=== PATIENT | female | born 1965 | race American Indian/Alaskan Native ===

== ENCOUNTER 2018-05-07 07:44 | Outpatient (CLI) | payer BC ==
--- NOTE | 2018-05-07 16:37 | Mammography Report ---
BILATERAL DIGITAL SCREENING MAMMOGRAM with CAD: 05/07/18 07:44:00 CLINICAL: Routine screening. COMPARISON:03/29/15 FINDINGS: The breasts are almost entirely fatty. No mass, architectural distortion or suspicious calcifications. IMPRESSION: No mammographic evidence of malignancy. BI-RADS CATEGORY: 1 - - Negative RECOMMENDATION: Routine mammographic screening in one year. COMMENT: Patient follow-up letters are generated by our [employer] application.
== END 2018-05-07 07:45 | disposition home or self-care (01) ==
LOC: MAMMO 07:44
PROVIDERS: ATTEND Family Medicine
DX: Z12.31 Encounter for screening mammogram for malignant neoplasm of breast (principal); Z88.8 Allergy status to other drugs, medicaments and biological substances; Z91.011 Allergy to milk products
CPT/HCPCS: 77067

== ENCOUNTER 2019-11-18 13:17 | Outpatient (CLI) | payer BC ==
--- NOTE | 2019-11-18 14:39 | Mammography Report ---
DIGITAL SCREENING MAMMOGRAM WITH CAD, 11/18/2019 INDICATION: Routine screening mammography. TECHNIQUE: Digital bilateral 2D mammography was obtained in the craniocaudal and mediolateral obliq ue projections. This examination was interpreted with the benefit of Computer-Aided Detection analysi s. COMPARISON: 02/04/2019 FINDINGS: Breast Density: There are scattered areas of fibroglandular density. There is no evidence of dominant mass, suspicious calcifications or architectural distortion in eithe r breast. IMPRESSION: No mammographic evidence of malignancy. Follow up recommendation: Routine yearly BI-RADS Category 1: Negative. A "normal" or negative report should not discourage follow up or biopsy of a clinically significant f inding. A written summary of these findings will be mailed to the patient. The patient will be entered into a mammography reporting system which will generate a reminder letter for the patient's next appointmen t at the appropriate interval. The [employer] recommends yearly mammograms starting at age 40 and continuing as l [place] as a woman is in good health. Breast MRI is recommended for women with an approximate 20-25% or greater lifetime risk of breast cancer, including women with a strong family history of breast or ova [place] cancer or who have been treated for Hodgkin's disease. Signer Name: Cale Barnett MD Signed: 11/18/2019 2:35 PM Workstation Name: [id number]
== END 2019-11-18 13:18 | disposition home or self-care (01) ==
LOC: MAMMO 13:17
PROVIDERS: ATTEND Family Medicine
DX: Z12.31 Encounter for screening mammogram for malignant neoplasm of breast (principal); N64.89 Other specified disorders of breast
CPT/HCPCS: 77067

== ENCOUNTER 2021-03-09 07:02 | Emergency (ER) | payer BC ==
--- NOTE | 2021-03-09 07:18 | Emergency Department Report ---
ED Headache HPI - General Chief Complaint: Headache Stated Complaint: SEVERE HEADACHE Time Seen by Provider: 03/09/21 07:17 Source: patient Exam Limitations: no limitations - History of Present Illness Initial Comments: 55-year-old female with no past medical history presents to the ER today with complaints of headache. Patient states that she has been having headache for 3 days. She describes a right-sided headache that radiates into her frontal head, and radiates into the occipital scalp. She states that the headache is intermittent and she describes it as a achy, sometimes squeezing pain. Patient states that she has been taking Tylenol which did relieve the pain until this morning when she took 2 Tylenol but it did not help. She states that she does not typically suffer from headaches. She denies any associated nausea, vomiting, vision changes, speech changes, neck pain, fever, chills, chest pain, shortness of breath or any other associated symptoms. She denies any head injuries recently. She is not on any anticoagulants or antiplatelets. Timing/Duration: other (3 days ago) Quality: achy, other (Squeezing) Allergies/Adverse Reactions: Allergies chloroquine Allergy (Verified 04/18/15 12:34) Dizziness BUTTER Allergy (Uncoded 05/07/18 07:45) Hives Home Medications: Ambulatory Orders Aspirin BABY CHEW TAB 81 mg PO DAILY 04/27/15 Multiple Vitamins For Women 1 tab PO DAILY 04/27/15 Ketorolac [Toradol] 10 mg PO Q6H PRN #20 tablet 03/09/21 ED Review of Systems ROS: Stated complaint: SEVERE HEADACHE Other details as noted in HPI Comment: All other systems reviewed and negative Constitutional: denies: chills, fever Eyes: denies: eye pain, eye discharge, vision change ENT: denies: ear pain, throat pain Respiratory: denies: cough, shortness of breath, SOB with exertion, SOB at rest, wheezing Cardiovascular: denies: chest pain, palpitations Gastrointestinal: denies: abdominal pain, nausea, vomiting, diarrhea, constipation, hematemesis, melena, hematochezia Genitourinary: denies: urgency, dysuria, frequency, hematuria, discharge, abnormal menses, dyspareunia Musculoskeletal: denies: back pain, joint swelling, arthralgia Skin: denies: rash, lesions, change in color, change in hair/nails, pruritus Neurological: headache. denies: numbness, paresthesias, confusion, abnormal gait, vertigo Psychiatric: denies: anxiety, depression, auditory hallucinations, visual hallucinations, homicidal thoughts, suicidal thoughts Hematological/Lymphatic: denies: easy bleeding, easy bruising ED Past Medical Hx - Past Medical History Hx COPD: No Hx HIV: No - Social History Smoking Status: Never Smoker - Medications Home Medications: Home Medications Medication Instructions Recorded Confirmed Last Taken Type Aspirin BABY CHEW TAB 81 mg PO DAILY 04/27/15 04/27/15 04/20/15 History Multiple Vitamins For Women 1 tab PO DAILY 04/27/15 04/27/15 04/26/15 History Ketorolac [Toradol] 10 mg PO Q6H PRN #20 tablet 03/09/21 Unknown Rx ED Physical Exam - General Limitations: No Limitations General appearance: alert, in no apparent distress - Head Head exam: Present: atraumatic, normocephalic, normal inspection - Eye Eye exam: Present: normal appearance, PERRL, EOMI Pupils: Present: normal accommodation - ENT ENT exam: Present: normal exam, mucous membranes moist, TM's normal bilaterally - Neck Neck exam: Present: normal inspection, full ROM - Respiratory Respiratory exam: Present: normal lung sounds bilaterally. Absent: respiratory distress, wheezes, rales, rhonchi - Cardiovascular Cardiovascular Exam: Present: regular rate, normal rhythm, normal heart sounds - GI/Abdominal GI/Abdominal exam: Present: soft. Absent: distended, tenderness, guarding, rebound - Neurological Exam Neurological exam: Present: alert, oriented X3, CN II-XII intact, normal gait, reflexes normal. Absent: motor sensory deficit - Psychiatric Psychiatric exam: Present: normal affect, normal mood - Skin Skin exam: Present: intact ED Course Vital Signs 03/09/21 03/09/21 03/09/21 07:10 09:10 09:42 Temperature 98.2 F 98.0 F Pulse Rate 77 64 Respiratory 18 18 16 Rate Blood Pressure 151/76 Blood Pressure 131/67 [Left] O2 Sat by Pulse 100 99 Oximetry ED Medical Decision Making - Radiology Data Radiology results: report reviewed Patient: DIO PATRICK MR#: [id number] : 1965 Acct:[id number] Age/Sex: 55 / F ADM Date: 03/09/21 Loc: ED Attending Dr: Ordering Physician: BRIGIDO BUCHANAN Date of Service: 03/09/21 Procedure(s): CT head/brain wo con Accession Number(s): [id number] cc: BRIGIDO BUCHANAN CT HEAD WITHOUT CONTRAST INDICATION : headache. TECHNIQUE: Axial imaging performed from the skull apex through the skull base without the use of contrast. Sagittal and coronal reformatted images. All CT scans at this location are performed using CT dose reduction for ALARA by means of automated exposure control. COMPARISON: None FINDINGS: Parenchyma: No acute intracranial hemorrhage or parenchymal abnormality. Ventricles: Ventricles are normal in size and appear symmetric. Bones: No acute osseous abnormality. Sinuses: Sinuses and mastoid air cells are clear. Soft tissues: Soft tissues including the orbits appear normal. IMPRESSION: No acute abnormality. Signer Name: Stewart Crespo Jr, MD Signed: 03/09/2021 8:21 AM Workstation Name: [id number] Transcribed By: TTR Dictated By: STEWART CRESPO JR, MD Electronically Authenticated By: STEWART CRESPO JR, MD Signed Date/Time: 03/09/21820 DD/ 8 TD/TT: - Medical Decision Making The patient presented to the emergency department with a headache. The patient is currently resting comfortably and, is alert, talkative, interactive and in no distress. The patient appears well and appears well-hydrated. Head CT shows nothing acute. She has a normal neurological exam, she has has a normal mental status, and is ambulatory in the ER. Her history, exam, diagnostic testing and the patient's current condition does not suggest meningitis, stroke, sepsis, subarachnoid hemorrhage, intracranial bleeding, encephalitis, temporal arteritis or other significant pathology to warrant further testing, continued ED treatment, admission, neurological consultation or other specialist evaluation at this p oint. Her vital signs have been stable. Discussed CT results, suspected dx and tx plan with pt. The patient's condition is stable and appropriate for discharge. The patient will pursue further outpatient evaluation with the primary care physician. Critical care attestation.: If time is entered above; I have spent that time in minutes in the direct care of this critically ill patient, excluding procedure time. ED Disposition Clinical Impression: Headache Disposition: DC-01 TO HOME OR SELFCARE Is pt being admited?: No Does the pt Need Aspirin: No Condition: Stable Instructions: General Headache Without Cause Additional Instructions: Take the toradol as needed for BOLAND. I recommend follow up with PCP in 1 week especially if your symptoms persist. Return to the ER if your symptoms changes or worsens in any way. Prescriptions: Ketorolac [Toradol] 10 mg PO Q6H PRN #20 tablet PRN Reason: Pain Referrals: LAURA JOHNS MD [Primary Care Provider] - 3-5 Days Forms: Work/School Release Form(ED) Time of Disposition: 09:59
--- NOTE | 2021-03-09 08:25 | Cat Scan Report ---
CT HEAD WITHOUT CONTRAST INDICATION : headache. TECHNIQUE: Axial imaging performed from the skull apex through the skull base without the use of con trast. Sagittal and coronal reformatted images. All CT scans at this location are performed using C T dose reduction for ALARA by means of automated exposure control. COMPARISON: None FINDINGS: Parenchyma: No acute intracranial hemorrhage or parenchymal abnormality. Ventricles: Ventricles are normal in size and appear symmetric. Bones: No acute osseous abnormality. Sinuses: Sinuses and mastoid air cells are clear. Soft tissues: Soft tissues including the orbits appear normal. IMPRESSION: No acute abnormality. Signer Name: Stewart Crespo Jr, MD Signed: 03/09/2021 8:21 AM Workstation Name: [id number]
[2021-03-09] MEDS ORDERED: KETOROLAC 60 MG/2 ML INJ IM ONE (08:59)
[2021-03-09 09:13] VITALS: BP 131/67
== END 2021-03-09 10:31 | disposition home or self-care (01) ==
LOC: ED 07:02
DX: R51.9 Headache, unspecified (principal); Z79.899 Other long term (current) drug therapy; Z88.8 Allergy status to other drugs, medicaments and biological substances
CPT/HCPCS: 70450; 96372; 99283; J1885